=== PATIENT | male | born 1985 | race Caucasian/White ===

== ENCOUNTER 2020-07-28 18:58 | Emergency (ER) | payer OTHER ==
[2020-07-28] MEDS ORDERED: Bacitracin Oint 1 GM U/D Packet TOP ONE (19:19)
--- NOTE | 2020-07-28 19:30 | EDM.PDOC ---
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 Unsure of his past immunizations. 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 [employer] notified by WALTER Shipley 2013 - Related Data Allergies Allergy/AdvReac Type Severity Reaction Status Date / Time No Known Allergies Allergy Verified 07/28/20 19:23 Home Meds: Home Meds . [No Known Home Meds] 07/28/20 [History] ED ROS GENERAL - Review of Systems Review Of Systems: Comprehensive ROS is negative, except as noted in HPI. ED EXAM, ANIMAL BITE - Physical Exam Exam: See Below Exam Limited By: No Limitations General Appearance: Alert, Mild Distress Cardiovascular: Regular Rate, Rhythm Extremities: Normal Range of Motion, Other (puncture wounds riight upper forearm) Neurological: Alert, Oriented, Normal Cognition Psychiatric: Normal Affect Skin Exam: Other (2 puncture wounds right upper forearm, mild swelling, scant active bleeding) Course - Vital Signs Last Recorded V/S: Last Vital Signs Temp 98.2 F 07/28/20 19:19 Pulse 91 07/28/20 19:19 Resp 18 07/28/20 19:19 BP 156/94 H 07/28/20 19:19 Pulse Ox 100 07/28/20 19:19 - Orders/Labs/Meds Meds: Medications Discontinued Medications Generic Name Dose Route Start Last Admin Trade Name Freq PRN Reason Stop Dose Admin Amoxicillin/Clavulanate Potassium 1 tab 07/28/20 19:31 07/28/20 19:37 Augmentin 875 Mg/125 Mg PO 07/28/20 19:32 1 tab ONETIME ONE Administration Bacitracin 1 dose 07/28/20 19:19 07/28/20 19:37 Bacitracin Oint 1 Gm TOP 07/28/20 19:20 1 dose ONETIME ONE Administration Departure - Departure Time of Disposition: 19:31 Disposition: Home, Self-Care 01 Condition: Good Clinical Impression: Dog bite of right arm Qualifiers: Encounter type: initial encounter Qualified Code(s): S41.151A - Open bite of right upper arm, initial encounter - Discharge Information *PRESCRIPTION DRUG MONITORING PROGRAM REVIEWED*: No *COPY OF PRESCRIPTION DRUG MONITORING REPORT IN PATIENT JOHNSON: No Instructions: Animal Bite, Adult, [id number] Forms: ED Department Discharge Additional Instructions: keep wound covered with dressing wash twice daily with soap and wter follow up if redness, swelling or drainage from wound ice pack for swelling tonight augmentin 875/125 one twice daily for one week Sepsis Event Note (ED) - Evaluation Sepsis Screening Result: No Definite Risk - Focused Exam Vital Signs: Vital Signs Temp Pulse Resp BP Pulse Ox 07/28/20 19:19 98.2 F 91 18 156/94 H 100
[2020-07-28] MEDS ORDERED: Amoxicillin/Clavulanate K 875-125 MG Tab PO ONE (19:31)
== END 2020-07-28 19:41 | disposition home or self-care (01) ==
LOC: DL.ED 18:58
DX: S51.851A Open bite of right forearm, initial encounter (principal); W54.0XXA Bitten by dog, initial encounter; Y92.009 Unspecified place in unspecified non-institutional (private) residence as the place of occurrence of the external cause
CPT/HCPCS: 99283; A9270